=== PATIENT | female | born 1985 | race Caucasian/White ===

== ENCOUNTER 2017-05-28 21:44 | Observation (INO) | payer MEDICAID ==
[~2017-05-28] VITALS: Ht 157.5 cm; Wt 68.0 kg
== END 2017-05-28 23:15 | disposition home or self-care (01) ==
LOC: L&D 21:44
PROVIDERS: ADMIT Specialist; ATTEND Specialist
DX: O26.892 Other specified pregnancy related conditions, second trimester (principal); R10.2 Pelvic and perineal pain; Z3A.20 20 weeks gestation of pregnancy
CPT/HCPCS: G0378 ×2